=== PATIENT | female | born 1955 | race Caucasian/White ===

== ENCOUNTER 2024-07-04 08:42 | Inpatient (IN) | payer MEDICARE, OTHER ==
[~2024-07-04] VITALS: Ht 149.9 cm; Wt 48.1 kg
[2024-07-04 09:50] LABS: Basophils # (auto) 0 10 ^3/uL (0-0.2); Basophils % (auto) 0.3 % (0.0-2.0); Eosinophils # (auto) 0.1 10 ^3/uL (0-0.8); Eosinophils % (auto) 0.9 % (0.0-7.0); Hemoglobin 16.1 g/dL (12.2-16.2); Lymphocytes # (auto) 0.6 10 ^3/uL (0.4-5.4); Mean Corpuscular Hemoglobin 32.4 pg (28.0-32.0); Mean Corpuscular Volume 92.5 fL (80.0-100.0); Monocytes # (auto) 0.8 10 ^3/uL (0-1.3); Monocytes % (auto) 8.9 % (0.0-12.0); Neutrophils # (auto) 7.9 10 ^3/uL (1.6-8.6); Neutrophils % (auto) 83.9 % (37.0-80.0); Platelet Count (auto) 244 10^3/uL (140-450); Red Blood Cells 4.97 10^6/uL (4.0-5.20); Red Cell Distribution Width 13.3 % (11.8-14.3); White Blood Cell 9.4 10^3/uL (4.4-10.8)
[2024-07-04 10:11] LABS: Alanine Aminotransferase 340 U/L (7-40); Albumin 4.4 g/dL (3.2-4.8); Alkaline Phosphatase 504 U/L (46-116); Anion Gap 8 (5-15); Aspartate Aminotransferase 256 U/L (13-40); Bilirubin, Total 17.8 mg/dL (0.2-1.0); Blood Urea Nitrogen 23 mg/dL (9-23); Calcium 10.4 mg/dL (8.7-10.4); Carbon Dioxide 26 mmol/L (20-30); Chloride 103 mmol/L (98-107); Glucose 111 mg/dL (74-106); Potassium 4.1 mmol/L (3.5-5.1); Sodium 137 mmol/L (136-145); Total Protein 7.6 g/dL (5.7-8.2)
[2024-07-04 10:12] LABS: BUN/Creatinine Ratio 26.7 (10.0-20.0)
[2024-07-04 10:18] LABS: Lipase 2725 U/L (12-53)
[2024-07-04] MEDS: MORPHINE SULFATE 4 MG/ML SYR/VIAL IV ONE (10:40)
[2024-07-04] MEDS: ONDANSETRON HCL 4 MG/2 ML VIAL IV ONE (10:40)
[2024-07-04 10:50] VITALS: PULSE 108; RESP 19; O2SAT 98
[2024-07-04 12:21] LABS: Urine Bacteria None Seen /hpf (None Seen)
[2024-07-04 12:27] LABS: Urine Blood Negative /uL (Negative); Urine Clarity Turbid (Clear); Urine Color Dark-Orange (Yellow); Urine Mucus MODERATE (None Seen); Urine Protein, UAD 1+ (Negative); Urine Specific Gravity 1.034 (1.001-1.035); Urine Urobilinogen 3 mg/dL (Negative); Urine WBC 5 /hpf (0 - 5); Urine pH 5.5 (5.0-9.0)
[2024-07-04 17:22] VITALS: PULSE 107; RESP 18; O2SAT 98
[2024-07-04] MEDS ORDERED: DOCUSATE SOD 100 MG CAP PO PRN (18:45)
[2024-07-04] MEDS ORDERED: NITROGLYCERIN 0.4 MG SL TAB SL PRN (18:45)
[2024-07-04] MEDS ORDERED: MORPHINE SULFATE INJ 2 MG/ml SYRG IV PRN (18:45)
[2024-07-04] MEDS ORDERED: HYDROcodone-ACET 5/325MG TAB PO PRN (18:45)
[2024-07-04] MEDS ORDERED: IBUPROFEN 600 MG TAB PO PRN (18:45)
[2024-07-04] MEDS: SODIUM CHLORIDE 0.9% 1,000 ML IV SCH (21:03)
[2024-07-04] MEDS: FAMOTIDINE (10MG/ML) 2ML VL IV SCH (22:36)
[2024-07-05] VITALS (7 sets, daily range): BP systolic 113–137; BP diastolic 58–63; PULSE 18–100; RESP 16–94; TEMP 98.1–99; O2SAT 93–98
[2024-07-05 05:02] LABS: Basophils # (auto) 0.1 10 ^3/uL (0-0.2); Basophils % (auto) 0.7 % (0.0-2.0); Eosinophils # (auto) 0.2 10 ^3/uL (0-0.8); Eosinophils % (auto) 2.2 % (0.0-7.0); Hematocrit 41.5 % (36.0-46.0); Hemoglobin 13.8 g/dL (12.2-16.2); Lymphocytes # (auto) 0.7 10 ^3/uL (0.4-5.4); Lymphocytes % (auto) 8.1 % (10.0-50.0); Mean Corpuscular Hemoglobin 31.8 pg (28.0-32.0); Mean Corpuscular Hgb Conc. 33.3 g/dL (32.0-36.0); Mean Corpuscular Volume 95.4 fL (80.0-100.0); Monocytes # (auto) 0.8 10 ^3/uL (0-1.3); Monocytes % (auto) 9.5 % (0.0-12.0); Neutrophils # (auto) 6.8 10 ^3/uL (1.6-8.6); Neutrophils % (auto) 79.5 % (37.0-80.0); Nucleated Red Blood Cells % 0.1 %; Platelet Count (auto) 184 10^3/uL (140-450); Red Blood Cells 4.35 10^6/uL (4.0-5.20); White Blood Cell 8.6 10^3/uL (4.4-10.8)
[2024-07-05 05:21] LABS: Alanine Aminotransferase 276 U/L (7-40); Albumin 3.7 g/dL (3.2-4.8); Alkaline Phosphatase 453 U/L (46-116); Anion Gap 10 (5-15); Aspartate Aminotransferase 190 U/L (13-40); Blood Urea Nitrogen 24 mg/dL (9-23); Calcium 9.5 mg/dL (8.7-10.4); Carbon Dioxide 22 mmol/L (20-30); Chloride 105 mmol/L (98-107); Glucose 77 mg/dL (74-106); Potassium 3.7 mmol/L (3.5-5.1); Sodium 137 mmol/L (136-145)
[2024-07-05 05:22] LABS: Bilirubin, Total 14.9 mg/dL (0.2-1.0); Total Protein 6.2 g/dL (5.7-8.2)
[2024-07-05 05:43] LABS: BUN/Creatinine Ratio 33.3 (10.0-20.0)
[2024-07-05] MEDS: ONDANSETRON HCL 4 MG/2 ML VIAL IV PRN (09:06)
[2024-07-05] MEDS: MORPHINE SULFATE INJ 2 MG/ml SYRG IV PRN (09:08)
[2024-07-05] MEDS: cefTRIAXone 1GM/50ML D5W 50 ML IV ONE (16:07)
[2024-07-05] MEDS: SODIUM CHLORIDE 0.9% 1,000 ML IV SCH (16:09)
[2024-07-05] MEDS: metroNIDAZOLE 500MG/100ML 100 ML IV SCH (22:19)
[2024-07-06] VITALS (8 sets, daily range): BP systolic 127–144; BP diastolic 54–73; PULSE 71–100; RESP 16–20; TEMP 36.7; O2SAT 93–99
[2024-07-06] MEDS: cefTRIAXone 1GM/50ML D5W 50 ML IV SCH (08:58)
[2024-07-06 14:11] LABS: Basophils # (auto) 0.1 10 ^3/uL (0-0.2); Basophils % (auto) 0.9 % (0.0-2.0); Eosinophils # (auto) 0.2 10 ^3/uL (0-0.8); Eosinophils % (auto) 2.7 % (0.0-7.0); Hematocrit 35.2 % (36.0-46.0); Lymphocytes # (auto) 0.6 10 ^3/uL (0.4-5.4); Lymphocytes % (auto) 7.4 % (10.0-50.0); Mean Corpuscular Hemoglobin 32.7 pg (28.0-32.0); Monocytes # (auto) 0.7 10 ^3/uL (0-1.3); Monocytes % (auto) 8.9 % (0.0-12.0); Neutrophils # (auto) 6.4 10 ^3/uL (1.6-8.6); Neutrophils % (auto) 80.1 % (37.0-80.0); Platelet Count (auto) 186 10^3/uL (140-450); Red Blood Cells 3.67 10^6/uL (4.0-5.20); Red Cell Distribution Width 13.9 % (11.8-14.3)
[2024-07-06 14:15] LABS: Alanine Aminotransferase 175 U/L (7-40); Alkaline Phosphatase 483 U/L (46-116); Amylase 189 U/L (30-118); Anion Gap 13 (5-15); Aspartate Aminotransferase 110 U/L (13-40); Blood Urea Nitrogen 17 mg/dL (9-23); Calcium 9.1 mg/dL (8.7-10.4); Carbon Dioxide 17 mmol/L (20-30); Chloride 112 mmol/L (98-107); Glucose 65 mg/dL (74-106); Lipase 114 U/L (12-53); Potassium 4.1 mmol/L (3.5-5.1); Sodium 142 mmol/L (136-145)
[2024-07-06 14:16] LABS: Albumin 3.3 g/dL (3.2-4.8); Bilirubin, Total 15.6 mg/dL (0.2-1.0); Total Protein 5.6 g/dL (5.7-8.2)
[2024-07-06 14:34] LABS: BUN/Creatinine Ratio 35.4 (10.0-20.0)
[2024-07-06 19:46] LABS: COVID19 ANTIGEN SOFIA FIA NEGATIVE (NEGATIVE)
[2024-07-07 08:46] LABS: Hepatitis B Surface Antigen Negative (Negative)
[2024-07-07 09:08] LABS: Hepatitis C Antibody Negative (Negative)
== END 2024-07-06 19:35 | disposition short-term general hospital (02) | DRG 871 ==
LOC: ER 08:48 → TELE 18:36 → TELE-WESTW 23:43 → TELE 23:58 → TELE-WESTW 07-05 10:10
PROVIDERS: ADMIT Nurse Practitioner Family; ATTEND Family Medicine
DX: A41.9 Sepsis, unspecified organism (principal); K85.90 Acute pancreatitis without necrosis or infection, unspecified; K80.60 Calculus of gallbladder and bile duct with cholecystitis, unspecified, without obstruction; E86.0 Dehydration; Z20.822 Contact with and (suspected) exposure to COVID-19; E80.6 Other disorders of bilirubin metabolism; R79.89 Other specified abnormal findings of blood chemistry; Z88.2 Allergy status to sulfonamides
CPT/HCPCS: 36415; 74176; 74181; 80053; 81001; 82150; 83690; 85025; 86803; 87081; 87340; 87426; G0378; J2405; J3490

== ENCOUNTER 2024-11-29 21:42 | Inpatient (IN) | payer MEDICARE, OTHER ==
[~2024-11-29] VITALS: Ht 152.4 cm; Wt 47.1 kg
[2024-11-29] MEDS: GABAPENTIN 300 MG CAP PO ONE (22:42)
--- NOTE | 2024-11-29 22:42 | ED.PDOC ---
History of Present Illness HPI Comments 69 y/o F, with a Hx of arthritis, chronic pain syndrome, cholelithiasis, pancreatitis, and sepsis, is BIBA for c/o right-leg pain, today. Patient endorses on chronic pain she has had following a surgical procedure she had performed on 10/17/24, suddenly, worsening, today, after waking up, this morning. Patient comments on said procedure being performed to correct a dislodged stent, that she had placed for gallstones she had, last year. She further states on gallstones causing an obstruction that led her to have pancreatitis then. Per EMS report, patient was noted to have had a blood pressure of 198/78 on scene, with all remaining vitals stable and within normal limits, and was given 100ug Fentanyl en en route, with minimal improvement. Patient reports no recent injuries, strenuous activities, or additional relevant information. She denies having any fever, chills, weakness, numbness, tingling, or other associated symptoms or modifiers at this time. 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, Pain Meds (100ug fentanyl ) Past Medical History PAST MEDICAL HISTORY: Arthritis, Gallstones Past Medical History (Other): sepsis, pancreatitis, PNA, chronic pain syndrome Surgical History (Other): stent REVENUE SPECIALIST History: No Pertinent REVENUE SPECIALIST History Family History Family History: Reviewed,noncontributory to illness Social History Smoker: Non-Smoker Alcohol: Denies ETOH Use Drugs: Denies Drug Use Lives In: Home Musculoskeletal: reports: others (right-leg pain ) Physical Exam General Appearance: No Apparent Distress, Normal HEENT: Normal ENT Inspection, Pharynx Normal, TMs Normal Neck: Full Range of Motion, Non-Tender, Normal, Normal Inspection Respiratory: Chest Non-Tender, Lungs Clear, No Accessory Muscle Use, No Respiratory Distress, Normal Breath Sounds Cardiovascular: No Edema, No JVD, No Murmur, No Gallop, Normal Peripheral Pulses, Regular Rate/Rhythm Breast Exam: Deferred Gastrointestinal: No Organomegaly, Non Tender, No Pulsatile Mass, Normal Bowel Sounds, Soft Genitalia: Deferred Pelvic: Deferred Rectal: Deferred Extremities: No calf tenderness, Normal capillary refill, Normal inspection, Normal range of motion, No pedal edema, Tender (RLE tenderness ) Musculoskeletal : Apperance: Normal Neurologic: Alert, telephone recorder II-XII nml as Tested, No Motor Deficits, Normal Affect, Normal Mood, No Sensory Deficits Cerebellar Function: Normal Reflexes: Normal Skin: Dry, Normal Color, Warm Lymphatic: No Adenopathy Was a procedure done? Was a procedure done?: No Differential Dx Considerations may include: chronic pain syndrome, sciatica, sprain, musculoskeletal pain, post-op complication X-Ray, Labs, Meds, VS Vital Signs Date Time Temp Pulse Resp B/P (MAP) Pulse Ox O2 Delivery O2 Flow Rate FiO2 11/29/24 23:08 Nasal Cannula* 2 28 11/29/24 22:56 99.2 90 18 142/59 (86) 98 99.2 11/29/24 22:43 99.2 11/29/24 21:48 98.2 102 16 198/94 (128) 98 Current Medications Medications (Trade) Dose Ordered Sig/Forest Route Start Time Stop Time Status Last Admin Gabapentin (Neurontin Capsule) 300 mg ONCE ONCE PO 11/29/24 22:15 11/29/24 22:16 DC 11/29/24 22:42 Acetaminophen (Tylenol Tablet) 650 mg ONCE ONCE PO 11/29/24 22:15 11/29/24 22:16 DC 11/29/24 22:43 Ketorolac Tromethamine (Toradol Injection) 15 mg ONCE ONCE IV 11/29/24 22:15 11/29/24 22:16 DC 11/29/24 22:51 Diazepam (Valium Tablet) 2 mg ONCE ONCE PO 11/29/24 22:15 11/29/24 22:16 DC 11/29/24 22:[address] [address] Ph: [phone] DIAGNOSTIC IMAGING Diagnostic Imaging Report : [id number] Signed PATIENT: MARU KABA ACCT: [id number] UNIT: [id number] : 1955 LOC: ER ROOM / BED: / AGE / SEX: 69 / F ADM STATUS: REG ER SERVICE 12 ORDERING PHYSICIAN: NESS HEBERT MD PROCEDURE(s): LUMB2 - LUMBAR SPINE 3 VIEW REASON: lower back pain ORDER NUMBER(s): [id number], ACCESSION NUMBER(s): [id number] CLINICAL INDICATION: lower back pain TECHNIQUE: 3 radiographic views of the lumbar spine were obtained. Comparison: None FINDINGS/IMPRESSION: There is no evidence of acute fracture or dislocation. The visualized joint space is well maintained. Dextroscoliosis of the lumbar spine is noted there is straightening of the normal lumbar lordotic curve. No compressed vertebra are noted. There is no radiopaque foreign body. HS:Y ATED BY: EMILIE CHESTER Jr., DO DICTATED DATE/TIME: 11/29/242309 SIGNED BY: EMILIE CHESTER Jr., SIGNED DATE/TIME: 11/29/242309 CC: Time of 1ST Reevaluation: 22:40 Reevaluation 1ST: Unchanged Patient Education/Counseling: Diagnosis, Treatment Family Education/Counseling: No Family Present Additional Information I reviewed the following notes from patient's past medical encounters: 07/04/24 ED physician note, 07/06/24 hospital discharge summary report The following tests were ordered, and results were reviewed by me: lumbar spin X-ray Additional Information was gathered from interviewing the following independent historians: EMT I discussed treatment and results with medical personnel Departure 1 Departure Time of Disposition: 23:32 (Patient with intractable lower back pain and weakness of the right leg. We will admit patient for further workup advanced imaging and expert consultation) Impression: Primary Impression: Right leg pain Additional Impressions: Lower back pain Qualified Codes: M54.41 - Lumbago with sciatica, right side Right leg weakness Disposition: ADMITTED INPATIENT Admit to: Med Surg Condition: Serious e-Prescriptions No Active Prescriptions or Reported Meds Critical Care Note Critical Care Time?: No Stability Stability form required: No Heart Score Heart Score: Heart Score Response (Comments) Value History N/A 0 EKG N/A 0 Age N/A 0 Risk Factors N/A 0 Troponin N/A 0 Total 0 I personally scribed for NESS HEBERT MD ([email or web address]) on 11/29/24 at 22:42. Electronically submitted by Jose Tilley ([email or web address]). I personally scribed for NESS HEBERT MD ([email or web address]) on 11/29/24 at 23:28. Electronically submitted by Jose Tilley ([email or web address]). NESS HEBERT MD Nov 29, 2024 22:42
[2024-11-29] MEDS: ACETAMINOPHEN 325 MG TAB PO ONE (22:43)
[2024-11-29] MEDS: diazePAM 2 MG TAB PO ONE (22:45)
[2024-11-29] MEDS: KETOROLAC TROMETH 30 MG/ML 1ML VIAL IV ONE (22:51)
--- NOTE | 2024-11-29 23:12 | DVH ---
CLINICAL INDICATION: lower back pain TECHNIQUE: 3 radiographic views of the lumbar spine were obtained. Comparison: None FINDINGS/IMPRESSION: There is no evidence of acute fracture or dislocation. The visualized joint space is well maintained. Dextroscoliosis of the lumbar spine is noted there is straightening of the normal lumbar lordotic cur ve. No compressed vertebra are noted. There is no radiopaque foreign body. HS:Y
[2024-11-30 00:07] LABS: Potassium 3.6 mmol/L (3.5-5.1); Sodium 141 mmol/L (136-145)
[2024-11-30 00:08] LABS: Anion Gap 7 (5-15); Calcium 9.8 mg/dL (8.7-10.4); Carbon Dioxide 24 mmol/L (20-31)
[2024-11-30 00:12] LABS: Basophils # (auto) 0 10 ^3/uL (0-0.2); Basophils % (auto) 0.5 % (0.0-2.0); Eosinophils # (auto) 0 10 ^3/uL (0-0.8); Hematocrit 36.7 % (36.0-46.0); Hemoglobin 12.9 g/dL (12.2-16.2); Lymphocytes # (auto) 0.6 10 ^3/uL (0.4-5.4); Lymphocytes % (auto) 9.5 % (10.0-50.0); Mean Corpuscular Hemoglobin 32.1 pg (28.0-32.0); Mean Corpuscular Volume 91.6 fL (80.0-100.0); Monocytes # (auto) 0.5 10 ^3/uL (0-1.3); Monocytes % (auto) 7.2 % (0.0-12.0); Neutrophils # (auto) 5.2 10 ^3/uL (1.6-8.6); Neutrophils % (auto) 82.8 % (37.0-80.0); Nucleated Red Blood Cells % 0.1 %; Platelet Count (auto) 214 10^3/uL (140-450); Red Blood Cells 4.01 10^6/uL (4.0-5.20); Red Cell Distribution Width 14.3 % (11.8-14.3); White Blood Cell 6.3 10^3/uL (4.4-10.8)
[2024-11-30 00:13] LABS: BUN/Creatinine Ratio 25.9 (10.0-20.0); Blood Urea Nitrogen 15 mg/dL (9-23)
[2024-11-30 00:18] LABS: Chloride 110 mmol/L (98-107); Glucose 108 mg/dL (74-106)
[2024-11-30] MEDS ORDERED: ACETAMINOPHEN 325 MG TAB PO PRN (01:30)
--- NOTE | 2024-11-30 01:35 | DVHHPRES ---
History of Present Illness Resident Creating Document: PIPPA SALOMON RESIDENT History of Present Illness Patient is a 69-year-old female with past medical history of chronic pain, pancreatitis, cholelithiasis, sepsis, osteoarthritis, sciatic nerve compression, who came in due to right leg pain. According to the patient since September 2024 she has been experiencing right-sided body pain after having undergone a procedure at [place] (ERCP?) including right jaw, right shoulder right back and right lower extremity for which he has been taking [place] 5. 3 days ago, patient was started on gabapentin by her PCP which she took on 11/28/24 and noticed significant improvement in her pain, after which she notes she took a bath did some stretches. The next morning on 11/29/2024 she woke up with worsened right back and right lower extremity pain, 9/10 in intensity, unrelieved by [place] which is what prompted this visit to the hospital. Previously patient was ambulating independently without cane, wheelchair, walker, however, since 11/28/2024 she is unable to walk and is only able to crawl. Review of systems patient is complaining of fatigue and shortness of breath. On physical exam, right lower extremity range of motion is restricted due to pain. Past Medical History chronic pain, pancreatitis, cholelithiasis, sepsis, osteoarthritis, sciatic nerve compression Past Surgical History ERCP Smoke: No ALCOHOL: none Drugs: None Lives: with Family Review of Systems Constitutional: Yes: Weakness, Malaise; No: Fever, Chills, Sweats, Other Eyes: No: Pain, Vision change, Conjunctivae inflammation, Eyelid inflammation, Other, Redness ENT: No: Ear pain, Ear discharge, Nose pain, Nose discharge, Nose congestion, Mouth pain, Mouth swelling, Throat pain, Throat swelling, Other Respiratory: Shortness of breath; No: Cough, Dry, SOB with excertion, Wheezing, Hemoptysis, Pleuritic Pain, Sputum, Wheezing, Other Cardiovascular: No: Chest Pain, Palpitations, Orthopnea, Paroxysmal Noc. Dyspnea, Edema, Lt Headedness, Other Gastrointestinal: No: Nausea, Vomiting, Abdominal Pain, Diarrhea, Constipation, Melena, Hematochezia, Other Genitourinary: No Dysuria, No Frequency, No Incontinence, No Hematuria, No Retention, No Other Musculoskeletal: shoulder pain, back pain, leg pain; No: other, neck pain, arm pain, hand pain, foot pain Skin: No: Rash, Lesions, Jaundice, Bruising, Other Neurological: Weakness; No: Numbness, Incoordination, Change in speech, Confusion, Seizures, Other Allergies: Coded Allergies: Sulfa Antibiotics (Verified Allergy, Unknown, 07/05/24) Medications Current Medications Medications Dose Ordered Sig/Forest Route Start Time Stop Time Status Last Admin Dose Admin Acetaminophen 650 mg Q6HP PRN PO 11/30/24 01:30 Enoxaparin Sodium 30 mg DAILY SC 11/30/24 10:00 Exam Vital Signs Vital Signs Date Time Temp Pulse Resp B/P (MAP) Pulse Ox O2 Delivery O2 Flow Rate FiO2 11/30/24 00:00 80 22 146/63 (90) 98 11/29/24 23:08 Nasal Cannula* 2 28 11/29/24 22:56 99.2 99.2 General Appearance: Alert, Oriented X3, Cooperative, mild distress HEENT: Atraumatic, PERRLA, EOMI, Other (Dry mucous membranes) Respiratory: Clear to auscultation, Normal air movement Cardiovascular: Regular rate, Normal S1, Normal S2 Abdominal: Normal bowel sounds, Soft, No tenderness Extremities: No edema, Normal pulses Skin: No significant lesion Neuro: Normal speech, Sensation intact Psych/Mental Status: Mental status NL, Mood NL Labs/Xrays Labs Test 11/29/24 23:41 Range/Units White Blood Count 6.3 4.4-10.8 10^3/uL Red Blood Count 4.01 4.0-5.20 10^6/uL Hemoglobin 12.9 12.2-16.2 g/dL Hematocrit 36.7 36.0-46.0 % Mean Corpuscular Volume 91.6 80.0-100.0 fL Mean Corpuscular Hemoglobin 32.1 H 28.0-32.0 pg Mean Corpuscular Hemoglobin Concent 35.0 32.0-36.0 g/dL Red Cell Distribution Width 14.3 11.8-14.3 % Platelet Count 214 140-450 10^3/uL Mean Platelet Volume 8.8 6.9-10.8 fL Neutrophils (%) (Auto) 82.8 H 37.0-80.0 % Lymphocytes (%) (Auto) 9.5 L 10.0-50.0 % Monocytes (%) (Auto) 7.2 0.0-12.0 % Eosinophils (%) (Auto) 0.0 0.0-7.0 % Basophils (%) (Auto) 0.5 0.0-2.0 % Neutrophils # (Auto) 5.2 1.6-8.6 10 ^3/uL Lymphocytes # (Auto) 0.6 0.4-5.4 10 ^3/uL Monocytes # (Auto) 0.5 0-1.3 10 ^3/uL Eosinophils # (Auto) 0 0-0.8 10 ^3/uL Basophils # (Auto) 0 0-0.2 10 ^3/uL Nucleated Red Blood Cells 0.1 % Sodium Level 141 136-145 mmol/L Potassium Level 3.6 3.5-5.1 mmol/L Chloride Level 110 H 98-107 mmol/L Carbon Dioxide Level 24 20-31 mmol/L Anion Gap 7 5-15 Blood Urea Nitrogen 15 9-23 mg/dL Creatinine 0.58 0.550-1.02 mg/dL Glomerular Filtration Rate Calc 97 >90 mL/min BUN/Creatinine Ratio 25.9 H 10.0-20.0 Serum Glucose 108 H 74-106 mg/dL Calcium Level 9.8 8.7-10.4 mg/dL Assessment/Plan Assessment/Plan Lumbar spondylosis with multilevel Degenerative disc disease; ruled out acute fracture Spinal stenosis L4-L5 Osteopenia Right leg weakness Chronic pain syndrome Sciatic nerve compression Osteoarthritis Vitamin D deficiency - Lumbar spine xray: There is no evidence of acute fracture or dislocation. The visualized joint space is well maintained. Dextroscoliosis of the lumbar spine is noted there is straightening of the normal lumbar lordotic curve. No co mpressed vertebra are noted. There is no radiopaque foreign body. - CT Lumbar spine: Lumbar spondylosis with multilevel degenerative changes involving the intervertebral discs, facet joints. Recommend follow up with MRI, if clinically indicated. - acetaminophen 625mg as needed for pain - vitamin D 50,000 units - resumed home dose gabapentin 100mg qPM DVT prophylaxis: Levonox 40mg Goals of care: Full code, discussed for >16 minutes on 11/30/24 Plan discussed with patient Plan discussed with Dr. Hyman Plan discussed with: Patient, Other (RN) My Orders Orders - PIPPA SALOMON RESIDENT Procedure Category Date Status Time Admit ADMIT 11/30/24 Transmitted 01:18 Code Status CODE 11/30/24 Transmitted 01:18 Vital Signs GARETH 11/30/24 In Process 01:18 Acetaminophen Tablet PHA 11/30/24 In Process (Tylenol Tablet) 01:30 Notify Md Of Changes GARETH 11/30/24 In Process From Base 01:18 Advance Directive GARETH 11/30/24 In Process 01:18 Urinalysis LAB 11/30/24 Logged 01:18 Allergies GARETH 11/30/24 In Process 01:18 Enoxaparin Sodium PHA 11/30/24 In Process (Lovenox) 10:00 Oxygen By Nasal RT 11/30/24 Transmitted Cannula 01:18 Notify Md Of Changes GARETH 11/30/24 In Process From Base 01:18 Ls Spine Wo Contrast CT 11/30/24 Logged 01:18 Chest Portable XY 11/30/24 Logged 01:18 Regular Diet DIET 11/30/24 Transmitted Breakfast Date of Service: Nov 30, 2024 Billing Provider: PEARL HYMAN MD Common Visit Codes: 19415-[id number] INP/OBS CARE (HIGH) Secondary Visit Codes: [id number]-[id number] CARE PLAN 30 MINUTES PIPPA SALOMON RESIDENT Nov 30, 2024 01:35 PEARL HYMAN MD Nov 30, 2024 18:13
--- NOTE | 2024-11-30 02:38 | DVH ---
Examination: CXRP Clinical Indication: sob Comparison: None. Technique: Frontal radiograph of the chest was obtained. Findings: Lungs are clear and well expanded, with no pulmonary infiltrate or pleural effusion. Ther e is no pneumothorax. Mild cardiomegaly. Aortic knob calcification noted. No acute osseous abnormality is seen. Impression: Mild cardiomegaly. Electronically Signed 11/30/2024 02:37 Mauricio Banuelos
--- NOTE | 2024-11-30 02:54 | DVH ---
Examination: LS2CT CLINICAL INDICATION: R leg weakness DIREAS;Reason for Exam: Wheelchair;Wheelchair;Modes of Transporta tion DITRANS;How is patient transported? COMPARISON: None. CONTRAST USED: None. TECHNIQUE: Axial sections through the lumbar spine with sagittal and coronal reformats are obtained without contrast. Technique for this CT scan was done using principles of ALARA (As Low As Reasonabl y Achievable). FINDINGS: There is Grade I anterolisthesis at L3-L4, L4-L5 levels. No spondylolysis. There is mild dextroscol iosis of the lumbar spine. Diffuse osteopenia. The lumbar lordosis is reduced. There are anterior and posterior marginal osteophytes, endplate scle rotic changes, facet arthropathy at multiple levels. There is multilevel reduction of the interverte bral disc space height. The vertebral bodies height and posterior elements are unremarkable. There is no fracture or subluxation. No destructive bony lesion is noted. The pre and paravertebral soft tissues are unremarkable. The sacroiliac joints are unremarkable to the extent visualized. T12-L1: Disc height is within normal limits. There is no significant disc herniation, central canal or neural foraminal narrowing. The facet joints are within normal limits. L1-L2: Disc height is within normal limits. There is no significant disc herniation, central canal or neural foraminal narrowing. The facet joints are within normal limits. L2-L3: Disc height is within normal limits. There is no significant disc herniation, central canal or neural foraminal narrowing. The facet joints are within normal limits. L3-L4: There are central and bilateral paracentral disc protrusions at L3-L4 level causing thecal sa c indentation. L4-L5: Moderate sized central and bilateral paracentral, foraminal protrusions of the disc with asso ciated ligamentum flavum thickening and facetal arthropathy causing spinal canal, lateral recess and neural foraminal stenosis. L5-S1: There is a small central disc protrusion indenting thecal sac, encroaching upon the lateral r ecesses. There is mild facet arthropathy. Vacuum phenomenon is present at this level. There are tiny bilateral renal calculi. IMPRESSION: Lumbar spondylosis with multilevel degenerative changes involving the intervertebral dis cs, facet joints. Recommend follow up with MRI, if clinically indicated. Electronically Signed 11/30/2024 02:53 Mauricio Banuelos
[2024-11-30] MEDS: ONDANSETRON HCL 4 MG/2 ML VIAL IV ONE (06:41)
[2024-11-30] MEDS: MORPHINE SULFATE 4 MG/ML SYR/VIAL IV ONE (06:41)
[2024-11-30 08:07] VITALS: PULSE 80; RESP 15; O2SAT 97
[2024-11-30] MEDS: methylPREDNISolone SOD SUCC 40 MG/ML VL IV ONE (09:23)
[2024-11-30 09:34] LABS: Urine Bacteria None Seen /hpf (None Seen)
[2024-11-30 09:57] LABS: Urine Blood Negative /uL (Negative); Urine Clarity Clear (Clear); Urine Color Yellow (Yellow); Urine Hyaline Cast FEW /lpf (0 - 2); Urine Mucus FEW (None Seen); Urine Protein, UAD TRACE (Negative); Urine Specific Gravity 1.031 (1.001-1.035); Urine Squamous Epithelial Cell None Seen /hpf (<5); Urine Urobilinogen Normal (Negative); Urine WBC 1 /HPF (0-5)
[2024-11-30] MEDS: ENOXAPARIN SOD 30 MG/0.3 ML SYRINGE SC SCH (10:11)
[2024-11-30] MEDS: ERGOCALCIFEROL 50,000 UNIT(1.25MG) CAP PO SCH (10:11)
[2024-11-30] MEDS: traMADol HCL 50 MG TAB PO PRN (12:22)
--- NOTE | 2024-11-30 14:21 | DVHPNRES ---
Progress Note Date Seen: Nov 30, 2024 Resident Creating Document: RAMY GONZALEZ RESIDENT Has the PT tested + for MRSA If YES, has PT been informed?: No Medical Necessity Reason Pt with a Central, PICC or Fol: No Subjective Review of Systems Patient is a 69-year-old female with past medical history of chronic pain, pancreatitis, cholelithiasis, sepsis, osteoarthritis, sciatic nerve compression, who came in due to right leg pain. According to the patient since September 2024 she has been experiencing right-sided body pain after having undergone a procedure at [place] (ERCP?) including right jaw, right shoulder right back and right lower extremity for which he has been taking [place] 5. 3 days ago, patient was started on gabapentin by her PCP which she took on 11/28/24 and noticed significant improvement in her pain, after which she notes she took a bath did some stretches. The next morning on 11/29/2024 she woke up with worsened right back and right lower extremity pain, 9/10 in intensity, unrelieved by [place] which is what prompted this visit to the hospital. Previously patient was ambulating independently without cane, wheelchair, walker, however, since 11/28/2024 she is unable to walk and is only able to crawl. Review of systems patient is complaining of fatigue and shortness of breath. On physical exam, right lower extremity range of motion is restricted due to pain. Past Medical History chronic pain, pancreatitis, cholelithiasis, sepsis, osteoarthritis, sciatic nerve compression Past Surgical History ERCP Smoke: No ALCOHOL: none Drugs: None Lives: with Family Objective vital signs Vital Sign Date Time Temp Pulse Resp B/P (MAP) Pulse Ox O2 Delivery O2 Flow Rate FiO2 11/30/24 12:31 98.6 78 23 159/51 (87) 96 98.6 11/30/24 08:07 Nasal Cannula* 2 28 medications Current Medications Medications Dose Ordered Sig/Forest Route Start Time Stop Time Status Last Admin Dose Admin Acetaminophen 650 mg Q6HP PRN PO 11/30/24 01:30 Enoxaparin Sodium 30 mg DAILY SC 11/30/24 10:00 11/30/24 10:11 30 MG Gabapentin 100 mg DAILY PO 11/30/24 18:00 Ergocalciferol 50,000 unit Q7D PO 11/30/24 10:00 11/30/24 10:11 50,000 UNIT Tramadol HCl 50 mg Q4HP PRN PO 11/30/24 10:45 11/30/24 12:22 50 MG Examination General Appearance: Alert, Oriented X3, Cooperative, mild distress HEENT: Atraumatic, PERRLA, EOMI, Other (Dry mucous membranes) Respiratory: Clear to auscultation, Normal air movement Cardiovascular: Regular rate, Normal S1, Normal S2 Abdominal: Normal bowel sounds, Soft, No tenderness Extremities: No edema, Normal pulses Skin: No significant lesion Neuro: Normal speech, Sensation intact Psych/Mental Status: Mental status NL, Mood NL laboratory and microbiology Laboratory Tests 11/29/24 23:41 Test 11/29/24 23:41 Range/Units Serum Glucose 108 H 74-106 mg/dL Problem List/Assessment/Plan Problem List/Assessment/Plan Lumbar spondylosis with multilevel Degenerative disc disease; ruled out acute fracture Moderate foraminal stenosis. Osteopenia Right leg weakness Chronic pain syndrome Sciatic nerve compression Osteoarthritis Vitamin D deficiency - Lumbar spine xray: There is no evidence of acute fracture or dislocation. The visualized joint space is well maintained. Dextroscoliosis of the lumbar spine is noted there is straightening of the normal lumbar lordotic curve. No compressed vertebra are noted. There is no radiopaque foreign body. - CT Lumbar spine: Lumbar spondylosis with multilevel degenerative changes involving the intervertebral discs, facet joints. - acetaminophen 625mg as needed for pain - vitamin D 50,000 units - resumed home dose gabapentin 100mg qPM -steroids IV -ketorolac and tramadol for the pain -PT evaluation DVT prophylaxis: Levonox 40mg Goals of care: Full code, discussed for >16 minutes on 11/30/24 Plan discussed with patient Plan discussed with Dr. Barajas Plan discussed with: Patient, Other (rn) My Orders My Orders Orders - RAMY GONZALEZ Procedure Category Date Status Time Pt Request For Service PT 11/30/24 Logged 10:31 Tramadol Hcl (Ultram) PHA 11/30/24 In Process 10:45 Date of Service: Nov 30, 2024 Billing Provider: PETE BARAJAS MD Common Visit Codes: [id number] INP/OBS CARE(HIGH) RAMY GONZALEZ Nov 30, 2024 14:21 PETE BARAJAS MD Nov 30, 2024 23:25
[2024-11-30 15:54] VITALS: BP 158/60; PULSE 93; RESP 18; TEMP 98.8; O2SAT 98
[2024-11-30 16:22] VITALS: PULSE 93; RESP 18; O2SAT 96
[2024-11-30 16:33] VITALS: BP 158/60; PULSE 93; RESP 20; TEMP 98.8; O2SAT 96
[2024-11-30] MEDS: GABAPENTIN 100 MG CAP PO SCH (17:09)
[2024-11-30] MEDS: KETOROLAC TROMETH 30 MG/ML 1ML VIAL IV PRN (17:09)
[2024-11-30] MEDS ORDERED: GABA-1308 PO (17:40)
[2024-11-30] MEDS ORDERED: HYDR-4902 PO (17:40)
[2024-11-30] MEDS: MORPHINE SULFATE INJ 2 MG/ml SYRG IV ONE (19:04)
[2024-11-30 20:00] VITALS: PULSE 92; RESP 18; O2SAT 96
[2024-11-30 21:00] VITALS: BP 145/57; PULSE 92; RESP 18; TEMP 98.1; O2SAT 96
[2024-11-30] MEDS: GABAPENTIN 100 MG CAP PO ONE (21:29)
[2024-12-01] VITALS (9 sets, daily range): BP systolic 118–168; BP diastolic 58–82; PULSE 71–100; RESP 16–19; TEMP 97.5–98.2; O2SAT 92–95
[2024-12-01] MEDS ORDERED: PERCOT PO ×2 (10:35→18:56)
[2024-12-01] MEDS ORDERED: METH4PAK PO (10:35)
[2024-12-01] MEDS: methylPREDNISolone SOD SUCC 40 MG/ML VL IV SCH (10:40)
[2024-12-01] MEDS: OXYCODONE W/ ACETAMINOPHEN 5/325MG TABLET PO PRN (10:41)
[2024-12-01] MEDS: GABAPENTIN 100 MG CAP PO SCH (10:41)
[2024-12-01] MEDS ORDERED: IBUP-1456 PO (11:45)
[2024-12-01] MEDS: OXYCODONE W/ ACETAMINOPHEN 5/325MG TABLET PO ONE (19:59)
[2024-12-02] MEDS: HYDROcodone-ACET 5/325MG TAB PO PRN (00:48)
[2024-12-02 01:00] VITALS: BP 125/68; PULSE 77; RESP 18; TEMP 98.3; O2SAT 92
[2024-12-02 05:00] VITALS: BP 172/83; PULSE 83; RESP 20; TEMP 98.5; O2SAT 94
--- NOTE | 2024-12-02 06:36 | DVHDSRES ---
Discharge Summary Date of Admission Resident Creating Document: RAMY GONZALEZ RESIDENT Nov 30, 2024 at 01:18 Date of Discharge: Dec 01, 2024 Admitting Diagnosis Lumbar spondylosis with multilevel Degenerative disc disease; ruled out acute fracture Labs/Diagnostic Data: Laboratory Results Test 11/30/24 09:28 11/29/24 23:41 Urine Color Yellow (Yellow) Urine Clarity Clear (Clear) Urine pH 6.0 (5.0-9.0) Urine Specific [place] 1.031 (1.001-1.035) Urine Protein Trace (Negative) Urine Ketones 2+ (Negative) Urine Blood Negative /uL (Negative) Urine Nitrite Negative (Negative) Urine Bilirubin Negative (Negative) Urine Urobilinogen Normal mg/dL (Negative) Urine Leukocyte Esterase Negative /uL (Negative) Urine RBC 1 /hpf (0 - 4) Urine Microscopic WBC 1 /HPF (0-5) Urine Squamous Epithelial Cells None seen /hpf (<5) Urine Bacteria None seen /hpf (None Seen) Urine Hyaline Casts Few /lpf (0 - 2) Urine Mucus Few (None Seen) Urine Glucose Normal mg/dL (Normal) White Blood Count 6.3 10^3/uL (4.4-10.8) Red Blood Count 4.01 10^6/uL (4.0-5.20) Hemoglobin 12.9 g/dL (12.2-16.2) Hematocrit 36.7 % (36.0-46.0) Mean Corpuscular Volume 91.6 fL (80.0-100.0) Mean Corpuscular Hemoglobin 32.1 pg (28.0-32.0) Mean Corpuscular Hemoglobin Concent 35.0 g/dL (32.0-36.0) Red Cell Distribution Width 14.3 % (11.8-14.3) Platelet Count 214 10^3/uL (140-450) Mean Platelet Volume 8.8 fL (6.9-10.8) Neutrophils (%) (Auto) 82.8 % (37.0-80.0) Lymphocytes (%) (Auto) 9.5 % (10.0-50.0) Monocytes (%) (Auto) 7.2 % (0.0-12.0) Eosinophils (%) (Auto) 0.0 % (0.0-7.0) Basophils (%) (Auto) 0.5 % (0.0-2.0) Neutrophils # (Auto) 5.2 10 ^3/uL (1.6-8.6) Lymphocytes # (Auto) 0.6 10 ^3/uL (0.4-5.4) Monocytes # (Auto) 0.5 10 ^3/uL (0-1.3) Eosinophils # (Auto) 0 10 ^3/uL (0-0.8) Basophils # (Auto) 0 10 ^3/uL (0-0.2) Nucleated Red Blood Cells 0.1 % Sodium Level 141 mmol/L (136-145) Potassium Level 3.6 mmol/L (3.5-5.1) Chloride Level 110 mmol/L (98-107) Carbon Dioxide Level 24 mmol/L (20-31) Anion Gap 7 (5-15) Blood Urea Nitrogen 15 mg/dL (9-23) Creatinine 0.58 mg/dL (0.550-1.02) Glomerular Filtration Rate Calc 97 mL/min (>90) BUN/Creatinine Ratio 25.9 (10.0-20.0) Serum Glucose 108 mg/dL (74-106) Calcium Level 9.8 mg/dL (8.7-10.4) Vitamin D 25-Hydroxy 30.3 ng/mL (30.0-100) Other Laboratory Tests 11/29/24 23:41 Brief Hx & Hospital Course: A 69-year-old female with a history of chronic pain, pancreatitis, cholelithiasis, sepsis, osteoarthritis, and sciatic nerve compression presented with right-sided leg pain. Symptoms began in September 2024 and worsened despite prior treatment with [place] and gabapentin initiated by her PCP. On admission, imaging ruled out acute fracture or dislocation, revealing lumbar spondylosis with multilevel degenerative disc disease, moderate foraminal stenosis, and dextroscoliosis. She was treated with steroids, IV ketorolac, percocet and acetaminophen for pain, Her symptoms improved marginally, though she continued to experience pain and mobility limitations. At discharge, the patient was advised to follow up with pain management and undergo outpatient MRI for further evaluation. She was provided with a 10-day supply of Percocet and a Medrol dose pack to continue tapering steroids. She remains full code, and the discharge plan was discussed with both the patient and her family. Instructions emphasized activity as tolerated and close monitoring of symptoms, with a focus on managing chronic pain and ensuring appropriate follow-up care. General Appearance: Alert, Oriented X3, Cooperative, mild distress HEENT: Atraumatic, PERRLA, EOMI, Other (Dry mucous membranes) Respiratory: Clear to auscultation, Normal air movement Cardiovascular: Regular rate, Normal S1, Normal S2 Abdominal: Normal bowel sounds, Soft, No tenderness Extremities: No edema, Normal pulses Skin: No significant lesion Neuro: Normal speech, Sensation intact, pain the right calf Psych/Mental Status: Mental status NL, Mood NL Case discussed with Dr Barajas Time spent on care 23 min Operations or Procedures Examination: LS2CT CLINICAL INDICATION: R leg weakness DIREAS;Reason for Exam: Wheelchair;Wheelchair;Modes of Transportation DITRANS;How is patient transported? COMPARISON: None. CONTRAST USED: None. TECHNIQUE: Axial sections through the lumbar spine with sagittal and coronal reformats are obtained without contrast. Technique for this CT scan was done using principles of ALARA (As Low As Reasonably Achievable). FINDINGS: There is Grade I anterolisthesis at L3-L4, L4-L5 levels. No spondylolysis. There is mild dextroscoliosis of the lumbar spine. Diffuse osteopenia. The lumbar lordosis is reduced. There are anterior and posterior marginal osteophytes, endplate sclerotic changes, facet arthropathy at multiple levels. There is multilevel reduction of the intervertebral disc space height. The vertebral bodies height and posterior elements are unremarkable. There is no fracture or subluxation. No destructive bony lesion is noted. The pre and paravertebral soft tissues are unremarkable. The sacroiliac joints are unremarkable to the extent visualized. T12-L1: Disc height is within normal limits. There is no significant disc herniation, central canal or neural foraminal narrowing. The facet joints are within normal limits. L1-L2: Disc height is within normal limits. There is no significant disc herniation, central canal or neural foraminal narrowing. The facet joints are within normal limits. L2-L3: Disc height is within normal limits. There is no significant disc herniation, central canal or neural foraminal narrowing. The facet joints are within normal limits. L3-L4: There are central and bilateral paracentral disc protrusions at L3-L4 level causing thecal sac indentation. L4-L5: Moderate sized central and bilateral paracentral, foraminal protrusions of the disc with associated ligamentum flavum thickening and facetal arthropathy causing spinal canal, lateral recess and neural foraminal stenosis. L5-S1: There is a small central disc protrusion indenting thecal sac, encroaching upon the lateral recesses. There is mild facet arthropathy. Vacuum phenomenon is present at this level. There are tiny bilateral renal calculi. IMPRESSION: Lumbar spondylosis with multilevel degenerative changes involving the intervertebral discs, facet joints. Recommend follow up with MRI, if clinically indicated. Electronically Signed Condition at Discharge: Stable Final Diagnosis/Problems List Lumbar spondylosis with multilevel Degenerative disc disease; ruled out acute fracture Moderate foraminal stenosis. Osteopenia Right leg weakness Chronic pain syndrome Sciatic nerve compression Osteoarthritis Vitamin D deficiency Discharge Disposition: Home Discharge Instruct/Medications Diet: Consistent carbohydrate, Cardiac 2g Na,low cholest Activity: Light activity Activity comment: [facility] Follow Up/Referral: f/u with pcp, pain managment and spine surgery Medications: see prescriptions Discharge Statement: "Patient was advised to return to the ER or call 911 if any headaches, dizziness, shortness of breath, chest pain, abdominal pain, bleeding, fevers, or worsening of medical condition. Patient was counseled about treatment plan, medications, possible side effects, patientverbalized understanding. All questions were answered to the best of my ability. This discharge took greater then 30 minutes in planning, reviewing documentation, counseling the patient, and discussing with other team members." ASSESSMENT ASSESSMENT Assessment moderate lumbar stenosis Date of Service: Dec 01, 2024 Billing Provider: PETE BARAJAS MD Common Visit Codes: 88503-VOV/OBS DISCH DAY >30min RAMY GONZALEZ RESIDENT Dec 02, 2024 06:36 PETE BARAJAS MD Dec 02, 2024 07:26
[2024-12-02 09:00] VITALS: BP 179/77; PULSE 85; RESP 20; TEMP 98.8; O2SAT 97
[2024-12-02] MEDS: OXYCODONE W/ ACETAMINOPHEN 5/325MG TABLET PO PRN (10:02)
--- NOTE | 2024-12-02 17:12 | DVHPNRES ---
Progress Note Date Seen: Dec 02, 2024 Resident Creating Document: RAMY GONZALEZ RESIDENT Has the PT tested + for MRSA If YES, has PT been informed?: No Medical Necessity Reason Pt with a Central, PICC or Fol: No Subjective Review of Systems Patient is a 69-year-old female with past medical history of chronic pain, pancreatitis, cholelithiasis, sepsis, osteoarthritis, sciatic nerve compression, who came in due to right leg pain. According to the patient since September 2024 she has been experiencing right-sided body pain after having undergone a procedure at [place] (ERCP?) including right jaw, right shoulder right back and right lower extremity for which he has been taking Stebbins 5. 3 days ago, patient was started on gabapentin by her PCP which she took on 11/28/24 and noticed significant improvement in her pain, after which she notes she took a bath did some stretches. The next morning on 11/29/2024 she woke up with worsened right back and right lower extremity pain, 9/10 in intensity, unrelieved by Stebbins which is what prompted this visit to the hospital. Previously patient was ambulating independently without cane, wheelchair, walker, however, since 11/28/2024 she is unable to walk and is only able to crawl. Review of systems patient is complaining of fatigue and shortness of breath. On physical exam, right lower extremity range of motion is restricted due to pain. Past Medical History chronic pain, pancreatitis, cholelithiasis, sepsis, osteoarthritis, sciatic nerve compression Past Surgical History ERCP Smoke: No ALCOHOL: none Drugs: None Lives: with Family Objective vital signs Vital Sign Date Time Temp Pulse Resp B/P (MAP) Pulse Ox O2 Delivery O2 Flow Rate FiO2 12/02/24 09:00 98.8 85 20 179/77 (111) 97 98.8 12/02/24 08:00 Room Air* 0 21 Total Intake and Output 12/01/24 12/01/24 12/02/24 15:00 23:00 07:00 Intake Total 654 ml 300 ml Output Total 200 ml 300 ml Balance 454 ml 0 ml medications General Appearance: Alert, Oriented X3, Cooperative, mild distress HEENT: Atraumatic, PERRLA, EOMI, Other (Dry mucous membranes) Respiratory: Clear to auscultation, Normal air movement Cardiovascular: Regular rate, Normal S1, Normal S2 Abdominal: Normal bowel sounds, Soft, No tenderness Extremities: No edema, Normal pulses Skin: No significant lesion Neuro: Normal speech, Sensation intact Psych/Mental Status: Mental status NL, Mood NL Examination General Appearance: Alert, Oriented X3, Cooperative, mild distress HEENT: Atraumatic, PERRLA, EOMI, Other (Dry mucous membranes) Respiratory: Clear to auscultation, Normal air movement Cardiovascular: Regular rate, Normal S1, Normal S2 Abdominal: Normal bowel sounds, Soft, No tenderness Extremities: No edema, Normal pulses Skin: No significant lesion Neuro: Normal speech, Sensation intact Psych/Mental Status: Mental status NL, Mood NL laboratory and microbiology Laboratory Tests 11/29/24 23:41 Test 11/29/24 23:41 Range/Units Serum Glucose 108 H 74-106 mg/dL Problem List/Assessment/Plan Problem List/Assessment/Plan Lumbar spondylosis with multilevel Degenerative disc disease; ruled out acute fracture Moderate foraminal stenosis. Osteopenia Right leg weakness Chronic pain syndrome Sciatic nerve compression Osteoarthritis Vitamin D deficiency - Lumbar spine xray: There is no evidence of acute fracture or dislocation. The visualized joint space is well maintained. Dextroscoliosis of the lumbar spine is noted there is straightening of the normal lumbar lordotic curve. No compressed vertebra are noted. There is no radiopaque foreign body. - CT Lumbar spine: Lumbar spondylosis with multilevel degenerative changes involving the intervertebral discs, facet joints. - acetaminophen 625mg as needed for pain - vitamin D 50,000 units - resumed home dose gabapentin 100mg qPM -Percocet for pain -PT evaluation: pt non collaborative Pt couldnt go home yesterday, but today she was discharged and went home by gurney transportation DVT prophylaxis: Levonox 40mg Goals of care: Full code, discussed for >16 minutes on 11/30/24 Plan discussed with patient Plan discussed with Dr. Barajas Plan discussed with: Patient, Other (rn) Date of Service: Dec 02, 2024 Billing Provider: PETE BARAJAS MD Common Visit Codes: 27651-ZOP/OBS DISCH DAY >30min RAMY GONZALEZ RESIDENT Dec 02, 2024 17:12 PETE BARAJAS MD Dec 03, 2024 09:16
== END 2024-12-02 13:29 | disposition home or self-care (01) | DRG 552 ==
LOC: ER 21:42 → EDBD 21:42 → OVERFLOW 11-30 01:18 → WEST WING 11-30 16:01
PROVIDERS: ADMIT Internal Medicine; ATTEND Emergency Medicine
DX: M48.061 Spinal stenosis, lumbar region without neurogenic claudication (principal); M47.896 Other spondylosis, lumbar region; E55.9 Vitamin D deficiency, unspecified; G89.4 Chronic pain syndrome; M85.861 Other specified disorders of bone density and structure, right lower leg; M51.369 Other intervertebral disc degeneration, lumbar region without mention of lumbar back pain or lower extremity pain; K80.20 Calculus of gallbladder without cholecystitis without obstruction; Z88.2 Allergy status to sulfonamides; Z79.899 Other long term (current) drug therapy; M19.90 Unspecified osteoarthritis, unspecified site; G57.00 Lesion of sciatic nerve, unspecified lower limb
CPT/HCPCS: 36415; 71045; 72100; 72131; 80048; 81001; 82306; 85025; 96374; G0378; J1885